=== PATIENT | female | born 1955 | race Caucasian/White ===

== ENCOUNTER 2019-11-16 07:40 | Day surgery (SDC) | payer OTHER ==
[~2019-11-16 07:40] MED LIST: Lactated Ringers 1,000 ML IV SCH; Sodium Chloride 0.9% 10 ML Syringe FLUSH PRN
[2019-11-16] MEDS ORDERED: Ondansetron 4 MG/2 ML SDV IVPUSH ONE (07:41)
[2019-11-16] MEDS ORDERED: Propofol 200 MG/20 ML SDV IV ONE (07:41)
[2019-11-16] MEDS ORDERED: Ketorolac 30 MG/ML SDV IVPUSH ONE (07:41)
[2019-11-16] MEDS ORDERED: Lidocaine 2% 5 ML SDV IV ONE (07:41)
[2019-11-16] MEDS ORDERED: Dexamethasone 4 MG/ML 5 ML MDV IVPUSH ONE (07:41)
[2019-11-16] MEDS ORDERED: Midazolam 1 MG/ML 2 ML SDV IV ONE (07:41)
[2019-11-16] MEDS ORDERED: Glycopyrrolate 0.2 MG/ML 5 ML MDV IV ONE (07:41)
[2019-11-16] MEDS ORDERED: Lactated Ringers 1,000 ML IV ONE (07:41)
[2019-11-16] MEDS ORDERED: fentaNYL 100 MCG/2 ML SDV IV ONE (07:41)
--- NOTE | 2019-11-16 10:49 | PCM.HPR ---
H & P Addendum review - H & P Addendum Review Date of Original H & P: 11/11/19 Date Reviewed: 11/16/19 Time Reviewed: 08:45 Patient was Examined: No Changes
--- NOTE | 2019-11-16 10:50 | PCM.OPNOTE ---
- General Post-Op/Procedure Note Date of Surgery/Procedure: 11/16/19 Operative Procedure(s): Needle Loc Breast Bx Pre Op Diagnosis: Abn mammo Post-Op Diagnosis: Same Anesthesia Technique: General LMA Primary Surgeon: Jericho Mueller Pathology: Breast Bx EBL in mLs: 5 Complications: None Condition: Good
--- NOTE | 2019-11-16 11:15 | MY ---
INDICATION: Abnormal right mammogram, post-biopsy. MAMMOGRAPHY GUIDANCE NEEDLE WIRE LOCALIZATION RIGHT BREAST: After discussing possible complications and the examination with the patient, standard procedure was followed for introduction of a [place] Mammalok type needle and wire combination utilizing a cranial approach in the CC projection initially and utilizing standard aseptic technique and anesthetic. The 12 cm needle was introduced to a point slightly below the area of interest which was anterior to the needle. IMPRESSION: No complicating process - satisfactory needle localization. Discussed with Dr. Mueller at time of the needle localization. VIDHI
--- NOTE | 2019-11-16 11:20 | MY ---
INDICATION: Right-sided excisional breast specimen post-needle loc. SURGICAL SPECIMEN MAMMOGRAPHY: Two views of the right breast needle localization specimen revealed the area of residual nodularity and the biopsy marker in place in the tissues adjacent to the needle. IMPRESSION: Satisfactory excisional biopsy right breast for papilloma residual, post-biopsy and post-needle localization. Results were discussed with Dr. Mueller soon after the examination was completed. VIDHI
[2019-11-16 11:22] VITALS: PULSE 75
--- NOTE | 2019-11-16 11:36 | OR ---
DATE OF OPERATION: 11/16/2019 SURGEON: Jericho Mueller MD PREOPERATIVE DIAGNOSIS: Right abnormal mammogram. POSTOPERATIVE DIAGNOSIS: Right abnormal mammogram. PROCEDURE: Right needle localization breast biopsy. ANESTHESIA: General LMA. DESCRIPTION OF PROCEDURE: The patient was initially brought to the mammogram suite, where needle localization was performed of the right retroareolar mass. It appears that the metallic marker left from the previous biopsy has migrated somewhat laterally. The patient was then brought to the operating room, where general anesthesia was administered with a laryngeal mask airway. The right breast was prepped with ChloraPrep and draped sterilely. A transverse incision was made approximately 1 cm above the right areola and skin flaps raised circumferentially. The needle was posterior to the area of concern, so I did follow the needle posteriorly to make sure I had a good posterior inferior margin. Medial and lateral margins were then obtained, and lastly, I went beneath the nipple area and followed this inferiorly to the tip of the needle. All palpable abnormality from the previous biopsy appears to be in the specimen. The specimen was removed and the biopsy cavity inspected and was hemostatic. There was one bleeder inferiorly that was suture-ligated with 3-0 Vicryl. No abnormalities remained. Specimen was sent for radiograph, and the clip was in the specimen. No significant abnormal is noted in the biopsy specimen, since this was almost entirely removed with her previous stereotactic biopsy. The wound was closed with 3-0 Vicryl subcutaneous sutures and interrupted 4-0 Prolene skin sutures. Sterile bulky pressure dressing was applied. The patient tolerated the procedure well and returned to Recovery in stable condition. /[id number] ROSSI/ZENAIDA
[2019-11-16 12:01] VITALS: BP 152/84
== END 2019-11-16 12:25 | disposition home or self-care (01) ==
LOC: FB.SDS 07:40 → EDSTATUS 09:00 → FB.SDS 12:25
PROVIDERS: ATTEND Surgery
DX: D24.1 Benign neoplasm of right breast (principal); N60.11 Diffuse cystic mastopathy of right breast; E11.9 Type 2 diabetes mellitus without complications; I10 Essential (primary) hypertension; Z79.899 Other long term (current) drug therapy; Z01.812 Encounter for preprocedural laboratory examination; Z20.828 Contact with and (suspected) exposure to other viral communicable diseases; Z88.0 Allergy status to penicillin
CPT/HCPCS: 00400; 19281; 76098; 87635; J1100; J1885; J2001; J2250; J2405; J2704; J3010; J3490; J7120; 88307; U0002